=== PATIENT | male | born 1950 | race Caucasian/White ===

== ENCOUNTER 2018-06-15 19:17 | Emergency (ER) | payer OTHER ==
[2018-06-15] MEDS ORDERED: NS 1,000 ML IV ONE (19:37)
--- NOTE | 2018-06-15 19:42 | EDPHY ---
H & P Stated Complaint: vertigo, nausea Time Seen by Provider: 06/15/18 19:24 HPI/ROS: CHIEF COMPLAINT: Vertigo HISTORY OF PRESENT ILLNESS: Patient is a 67-year-old man who began complaining of mild headache for about the last 10 days. He saw his primary care doctor last week who diagnosed him with otitis media and give a course of antibiotics. This did not make him feel better so he presented again today. The primary care doctor recommended and Neti pot which he tried at home and soon after he became extremely vertiginous. He states that this also happened several years ago when he got out of bed abruptly. It resolved with time and with Sukhjinder maneuver. The patient has not had a fever. No recent trauma. Patient states that he felt better if he looked down words and was sitting with his head down. The patient's called EMS who administered Zofran and brought him here. He states that he now feels much better. Severity: Severe Modifying factors: Improved with Zofran REVIEW OF SYSTEMS: Constitutional: denies: chills, fever, recent illness, recent injury EENTM: denies: blurred vision, double vision, nose congestion Respiratory: denies: cough, shortness of breath Cardiac: denies: chest pain, irregular heart rate, lightheadedness, palpitations Gastrointestinal/Abdominal: denies: abdominal pain, diarrhea, nausea, vomiting, blood streaked stools Genitourinary: denies: dysuria, frequency, hematuria, pain Musculoskeletal: denies: joint pain, muscle pain Skin: denies: lesions, rash, jaundice, bruising Neurological: See HPI denies: headache, numbness, paresthesia, tingling, weakness Hematologic/Lymphatic: denies: blood clots, easy bleeding, easy bruising Immunologic/allergic: denies: HIV/AIDS, transplant 10 systems reviewed and negative except as noted EXAM: GENERAL: Well-appearing, well-nourished and in no acute distress. HEAD: Atraumatic, normocephalic. EYES: Mild nystagmus to the right, Pupils equal round and reactive to light, extraocular movements intact, sclera anicteric, conjunctiva are normal. ENT: TMs normal, nares patent, oropharynx clear without exudates. Moist mucous membranes. NECK: Normal range of motion, supple without lymphadenopathy or JVD. LUNGS: Breath sounds clear to auscultation bilaterally and equal. No wheezes rales or rhonchi. HEART: Regular rate and rhythm without murmurs, rubs or gallops. ABDOMEN: Soft, nontender, normoactive bowel sounds. No guarding, no rebound. No masses appreciated. BACK: No CVA tenderness, no spinal tenderness, step-offs or deformities EXTREMITIES: Normal range of motion, no pitting or edema. No clubbing or cyanosis. NEUROLOGICAL: Cranial nerves II through XII grossly intact. Normal speech, normal gait. 5/5 strength, normal movement in all extremities, normal sensation , normal reflexes some difficulty with walking heel to toe, normal the test of skew. Negative head impulse testing. With no corrective saccade PSYCH: Normal mood, normal affect. SKIN: Warm, dry, normal turgor, no visible rashes or lesions. Source: Patient Exam Limitations: No limitations - Personal History Current Tetanus/Diphtheria Vaccine: Yes Current Tetanus Diphtheria and Acellular Pertussis (TDAP): Yes - Medical/Surgical History Hx Asthma: No Hx Chronic Respiratory Disease: No Hx Diabetes: No Hx Cardiac Disease: No Hx Renal Disease: No Hx Cirrhosis: No Hx Alcoholism: No Hx HIV/AIDS: No Hx Splenectomy or Spleen Trauma: No Other PMH: ear infection, vertigo - Family History Significant Family History: No pertinent family hx - Social History Smoking Status: Never smoked Alcohol Use: None Constitutional: Initial Vital Signs Temperature (C) 36.6 C 06/15/18 19:23 Heart Rate 70 06/15/18 19:23 Respiratory Rate 16 06/15/18 19:23 Blood Pressure 156/84 H 06/15/18 19:23 O2 Sat (%) 99 06/15/18 19:23 O2 Delivery Mode Room Air Allergies/Adverse Reactions: No Known Allergies Allergy (Unverified 06/15/18 19:22) Home Medications: Medication Instructions Recorded Azithromycin [Zithromax] 250 mg PO DAILY #11 tab 06/15/18 Meclizine HCl [Meclizine HCl 25 mg 25 mg PO BID #20 tab 06/15/18 (RX,OTC)] Medical Decision Making - Diagnostics EKG Interpretation: An EKG obtained and was read and documented in trace view. Please see trace view for full reading and report. Sinus rhythm, no acute ischemic changes or arrhythmia Imaging: Discussed imaging studies w/ call manager Radiologist ED Course/Re-evaluation: The patient's history sounds consistent with benign positional vertigo however his history of 10 days headache a that is not improving as well as difficulty with heel to toe walking as well as normal head impulse testing is concerning enough to me in the 67-year-old to obtain MRI to rule out tumor or CVA. The patient clinically is feeling much better. 9:00 p.m. MRI is negative. Patient continues to feel well. He is eager to go home. Will discharge with meclizine. Will have follow-up with ENT. 9:30 p.m. the patient is requesting a course of antibiotics for his continued sinus infection. He will follow up with Castellanos. Differential Diagnosis: Partial list of the Differential diagnosis considered include but were not limited to; benign positional vertigo, labyrinthitis, CVA and although unlikely based on the history and physical exam, I also considered tumor, thrombosis, dissection. - Data Points Laboratory Results: Laboratory Results 06/15/18 19:48 06/15/18 19:48 Medications Given: Discontinued Medications Azithromycin (Zithromax) 500 mg PO EDNOW ONE PRN Reason: Protocol Stop: 06/15/18 21:36 Last Admin: 06/15/18 21:40 Dose: 500 mg Sodium Chloride (Ns) 1,000 mls @ 0 mls/hr IV ONCE ONE; Wide Open PRN Reason: Protocol Stop: 06/15/18 19:38 Last Admin: 06/15/18 19:46 Dose: 1,000 mls Meclizine HCl (Meclizine Hcl) 25 mg PO EDNOW ONE Stop: 06/15/18 21:36 Last Admin: 06/15/18 21:40 Dose: 25 mg Departure - Departure Disposition: Home, Routine, Self-Care Clinical Impression: Vertigo Condition: Fair Instructions: Vertigo (ED) Referrals: Patient,NotPresent [Unknown] - As per Instructions Darius Keita MD [Medical Doctor] - As per Instructions Prescriptions: Azithromycin [Zithromax] 250 mg PO DAILY #11 tab Meclizine HCl [Meclizine HCl 25 mg (RX,OTC)] 25 mg PO BID #20 tab
--- NOTE | 2018-06-15 19:44 | CPEKG ---
Test Reason : OPEN Blood Pressure : / mmHG Vent. Rate : 077 BPM Atrial Rate : 077 BPM P-R Int : 151 ms QRS Dur : 092 ms QT Int : 417 ms P-R-T Axes : 048 009 026 degrees QTc Int : 472 ms Sinus rhythm Confirmed by Brianna Lugo ([id number]) on 06/15/2018 7:44:08 PM Referred By: BRIANNA LUGO Confirmed By:Brianna Lugo
[2018-06-15 19:58] LABS: PLATELET COUNT 296 10^3/uL (150-400)
[2018-06-15] MEDS ORDERED: AZITHROMYCIN 250 MG TAB PO ONE (21:35)
[2018-06-15] MEDS ORDERED: MECLIZINE HCL 25 MG TAB PO ONE (21:35)
[2018-06-15 21:46] VITALS: BP 145/73
== END 2018-06-15 21:45 | disposition home or self-care (01) ==
DX: R42 Dizziness and giddiness (principal); E86.9 Volume depletion, unspecified
CPT/HCPCS: 70551-PN